=== PATIENT | male | born 1985 | race Caucasian/White ===

== ENCOUNTER 2018-03-10 10:06 | Inpatient (IN) | payer OTHER, SELFPAY ==
[2018-03-10] MEDS ORDERED: methylPREDNISolone Sod Succ/PF 125 MG/2 ML VIAL ONE (10:18)
[2018-03-10 10:39] LABS: #Basophils 0.2 thou/uL (0.0-0.2); #Eosinphils 0.2 thou/uL (0.0-0.7); #Lymphocytes 4.7 thou/uL (1.20-3.40); #Monocytes 1.8 thou/uL (0.11-0.59); %Basophils 1.2 % (0.0-1.0); %Eosinophils 1.7 % (0.0-10.0); %Lymphocytes 33.9 % (21.0-51.0); %Monocytes 13.1 % (0.0-10.0); %Neutrophils 50.2 % (42.0-75.0); Hemoglobin 18.3 g/dL (14.0-18.0); Mean Corpuscular HGB CONC 33.6 g/dL (32.0-36.0); Mean Corpuscular Hemoglobin 31.7 pg (27.0-31.0); Mean Corpuscular Volume 94.1 fL (78.0-98.0); Mean Platelet Volume 7.3 fL (7.4-10.4); Platelet Count 404 thou/uL (130-400); RBC Distribution Width 12.7 % (11.5-14.5); Red Blood Cell (RBC) Count 5.79 mill/uL (4.70-6.10); White Blood Cell (WBC) Count 13.9 thou/uL (4.8-10.8)
[2018-03-10] MEDS ORDERED: Albuterol Sulfate 2.5 mg/0.5 ml Neb ONE (10:41)
[2018-03-10 10:58] LABS: ALT (SGPT) 12 U/L (8-55); AST (SGOT) 27 U/L (5-34); Albumin 5.1 g/dL (3.5-5.0); Alkaline Phosphatase 112 U/L (40-150); Anion Gap 20 mmol/L (10-20); BUN (Urea Nitrogen) 16 mg/dL (8.9-20.6); Calc. Creatinine Clearance 0 mL/min (70-130); Calcium 10.6 mg/dL (7.8-10.44); Carbon Dioxide 22 mmol/L (22-29); Chloride 100 mmol/L (98-107); Estimated GFR-MDRD 65; Globulin 3.9 g/dL (2.4-3.5); Glucose 104 mg/dL (70-105); Potassium 3.3 mmol/L (3.5-5.1); Sodium 139 mmol/L (136-145)
[2018-03-10 11:00] LABS: CO2 Tension 13.3 mmHg (35.0-45.0); O2 Tension (PaO2) 118.4 mmHg (80.0-100.0); pH, Arterial 7.71 (7.35-7.45)
[2018-03-10] MEDS ORDERED: Magnesium 2 GM/NS 0.9% 100 ML 2 GM in Premix Bag 1 BAG IVPB SCH (11:00)
[2018-03-10 11:01] LABS: Actual Bicarbonate (HCO3a) 16.6 mEq/L (22-28); Analyzer IN Cardio ER; Base Excess (BEa) 1.3 mEq/L (-2.0 to +3.0); Carboxyhemoglobin (COHb) 0.9 gm% (0.0-3.0); Hemoglobin (Hb) 16.9 g/dL (14.0-18.0); Potassium - ABG Lab 3.3 mmol/L (3.70-5.30); Puncture Site L.B.
[2018-03-10 11:02] LABS: ALV-art Gradient 14.705 (0-20)
--- NOTE | 2018-03-10 11:02 | RAD ---
SINGLE VIEW CHEST: HISTORY: Dyspnea. History of asthma. COMPARISON: 06/11/2013 FINDINGS: Single view of the chest show normal sized cardiomediastinal silhouette. There is no evidence of cons olidation, mass, or pleural effusion. The bones are unremarkable. IMPRESSION: No evidence of acute cardiopulmonary disease. POS: [facility]
[2018-03-10] MEDS ORDERED: Azithromycin 500 MG VIAL ONE (11:47)
[2018-03-10] MEDS ORDERED: cefTRIAXone\\ROCEPHIN 1 GM VIAL ONE (11:47)
--- NOTE | 2018-03-10 13:41 | PDOC.FPRHP ---
- History of Present Illness Chief Complaint: Shortness of breath History of Present Illness: 33 year old male with history of asthma that presents with shortness of breath for the last two days. He states that he woke up short of breath yesterday morning. Since then, he has developed a non-productive cough. He has taken his albuterol inhaler q6h over the last two days which has helped minimally. He has not been on any maintenance inhalers in several years. As a kid he was hospitalized nearly every year, once a year for asthma exacerbation. He has never been intubated. Last hospital visit was appx 3 years ago. He had a URI which provoked an asthma exacerbation. Factors that exacerbate his asthma include environmental allergens like grass and pollen, as well as exercise. He also notes anxiety to be a factor here more recently. He was recently diagnosed with anxiety and has not been started on any medications. He cannot pinpoint any particular event over the last two days that would have made him anxious. Patient noted audible wheezing and some chest pain associated with his shortness of breath. Both improved after duoneb treatments. - Allergies/Adverse Reactions Allergies Allergy/AdvReac Type Severity Reaction Status Date / Time No Known Drug Allergies Allergy Verified 06/11/13 20:17 - Home Medications Medication Instructions Recorded Confirmed Type ALButerol Sulfate [Ventolin] 3 ml NEB Q4HR PRN 06/11/13 03/10/18 History - History PMHx: Asthma PSHx: None FHx: Family history of anxiety on maternal side Social: Denies tobacco, alcohol or drug use - Review of Systems General: denies: fever/chills, weight/appetite/sleep changes, fatigue Eyes: denies: eye pain, vision changes ENT: denies: nasal congestion, rhinorrhea Respiratory: reports: cough, shortness of breath. denies: congestion Cardiovascular: reports: chest pain. denies: palpitation, edema Gastrointestinal: denies: nausea, vomiting, diarrhea, constipation, abdominal pain, GI bleeding Genitourinary: denies: incontinence, polyuria Skin: reports: lesions. denies: rashes, jaundice Musculoskeletal: denies: pain, tenderness, stiffness Neurological: reports: numbness (bilateral hands). denies: syncope, seizure Psychological: denies: anxiety, depression - Vital signs BP: 107/65 HR: 111 RR: 111 Tmax: 98.0 F Pox: 100% on RA Wt: 56.9 kg - Physical Exam Constitutional: NAD, awake, alert and oriented, well developed HEENT: PERRLA, EOMI, conjunctiva clear, MMM -HEENT: very poor dentition Neck: no LAD, no JVD Heart: RRR, normal S1/S2, no murmurs/rubs/gallops, pulses present, no edema -Lungs: Decreased breath sounds, poor air movement, no wheezing Abdomen: soft, non-tender, bowel sounds present, no masses/distention Musculoskeletal: normal tone Neurological: no focal deficit Skin: good turgor, capillary refill <2 seconds -Skin: Multiple lesions on bilateral lower extremities that appear to be healed over; 2 /2 ant bites per patient Heme/Lymphatic: no unusual bruising or bleeding Psychiatric: good judgment and insight, intact recent and remote memory -Psychiatric: Flat affect FMR H&P: Results - Labs Result Diagrams: 03/11/18 04:46 03/11/18 04:46 Lab results: WBC 13.9 thou/uL (4.8-10.8) H 03/10/18 10:25 Hgb 18.3 g/dL (14.0-18.0) H 03/10/18 10:25 Hct 54.5 % (42.0-52.0) H 03/10/18 10:25 MCV 94.1 fL (78.0-98.0) 03/10/18 10:25 Plt Count 404 thou/uL (130-400) H 03/10/18 10:25 Neutrophils % 50.2 % (42.0-75.0) 03/10/18 10:25 ABG pH 7.71 (7.35-7.45) H* 03/10/18 10:50 ABG pCO2 13.3 mmHg (35.0-45.0) L* 03/10/18 10:50 ABG pO2 118.4 mmHg (80.0-100.0) H 03/10/18 10:50 Sodium 139 mmol/L (136-145) 03/10/18 10:25 Potassium 3.3 mmol/L (3.5-5.1) L 03/10/18 10:25 Chloride 100 mmol/L (98-107) 03/10/18 10:25 Carbon Dioxide 22 mmol/L (22-29) 03/10/18 10:25 BUN 16 mg/dL (8.9-20.6) 03/10/18 10:25 Creatinine 1.29 mg/dL (0.6-1.3) 03/10/18 10:25 Glucose 104 mg/dL (70-105) 03/10/18 10:25 Lactic Acid 5.5 mmol/L (0.5-2.2) H* 03/10/18 10:25 Calcium 10.6 mg/dL (7.8-10.44) H 03/10/18 10:25 Total Bilirubin 1.0 mg/dL (0.2-1.2) 03/10/18 10:25 AST 27 U/L (5-34) 03/10/18 10:25 ALT 12 U/L (8-55) 03/10/18 10:25 Alkaline Phosphatase 112 U/L (40-150) 03/10/18 10:25 Serum Total Protein 9.0 g/dL (6.0-8.3) H 03/10/18 10:25 Albumin 5.1 g/dL (3.5-5.0) H 03/10/18 10:25 FMR H&P: A/P - Problem List (1) Asthma exacerbation Current Visit: Yes Status: Acute Code(s): J45.901 - UNSPECIFIED ASTHMA WITH (ACUTE) EXACERBATION (2) Lactic acidosis Current Visit: Yes Status: Acute Code(s): E87.2 - ACIDOSIS (3) Leukocytosis Current Visit: Yes Status: Acute Code(s): D72.829 - ELEVATED WHITE BLOOD CELL COUNT, UNSPECIFIED - Plan 1. Asthma exacerbation - Hx of asthma on albuterol - Improved respiratory status with duonebs, Mg - Continue q4h duonebs with q2h albuterol PRN - Prednisone qd - s/p 2L NS; continue at 100 mL/hr - O2 for O2 sats <90% - s/p azithromycin and ceftriaxone x1 dose; continue azithromycin for possible infection and anti-inflammatory properties - Possibly exacerbated by infection; viral respiratory panel, influenza swab, and blood cx pending - Decreased lung sounds throughout, but no wheezing, rales or rhonchi on exam - pH 7.71, pCO2 13.3, pO2 118; hyperventilation. Values at - May have been provoked by environmental allergies, anxiety, or infection - Hypotensive on admission, but responded well to fluids Leukocytosis - Reactive vs. infectious - Blood cx, influenza swab, and respiratory panel pending - AM CBC Lactic acidosis - 5.5 on presentation, down to 1.3 after fluids Hypokalemia - Replace; may go down due to albuterol treatments DVT PPX: SCDs Code status: Full Dispo: Stable. Anticipate LOS >48 hours. Continue to monitor respiratory status. FMR H&P: Upper Level - Plan Date/Time: 03/10/18 [id number] I, [], have evaluated this patient and agree with findings/plan as outlined by pharmacist intern resident. Pertinent changes/additions are listed here. Attending Addendum - Attending Addendum Date/Time: 03/11/18 [id number] I personally evaluated the patient and discussed the management with Dr. Tavarez on 03/10/2018 I agree with the History, Examination, Assessment and Plan documented above with any addition or exceptions noted below- 33 year old gentleman with h/o asthma and anxiety presented c/o SOB x 2 days with associated non-productive cough. Uses albuterol inhaler prn and minimal relief with it over the last 2 days. No h/o intubations. Last hospitalization 3 years ago. PMH/PSH/Meds/All reviewed and agree with resident's documentation. Afebrile VSS Exam repeated by me and agree with resident's findings. A/P: 1) Asthma exacerbation- improved after nebs, steroids, fluids. Continue current meds.
[2018-03-10 14:20] VITALS: BMI 19.1
[2018-03-10] MEDS ORDERED: Ondansetron ODT 4 MG TAB PO PRN ×2 (14:35→14:37)
[2018-03-10] MEDS ORDERED: Ondansetron HCl/PF 4 MG/2 ML Vial IVP PRN (14:35)
[2018-03-10] MEDS ORDERED: Acetaminophen 325 MG TAB PO PRN (14:36)
[2018-03-10] MEDS ORDERED: Albuterol Sulfate 2.5 mg/3 ml Neb NEB PRN (14:37)
[2018-03-10] MEDS ORDERED: Sodium Chloride 0.9% 1,000 ML IV SCH (14:45)
[2018-03-10 14:50] LABS: Lactic Acid 1.3 mmol/L (0.5-2.2)
[2018-03-10] MEDS: Sodium Chloride 0.9% 1,000 ML IV SCH (15:47)
[2018-03-10] MEDS ORDERED: Potassium Chloride 20 MEQ TAB PO SCH (16:00)
[2018-03-10] MEDS ORDERED: methylPREDNISolone Sod Succ/PF 125 MG/2 ML VIAL IVP SCH (22:00)
[2018-03-11] MEDS: Sodium Chloride 0.9% 1,000 ML IV SCH ×2 (01:19→11:41)
[2018-03-11 05:21] LABS: Anion Gap 11 mmol/L (10-20); BUN (Urea Nitrogen) 13 mg/dL (8.9-20.6); Calc. Creatinine Clearance 116 mL/min (70-130); Calcium 9.1 mg/dL (7.8-10.44); Carbon Dioxide 24 mmol/L (22-29); Chloride 108 mmol/L (98-107); Estimated GFR-MDRD Greater than 90; Glucose 141 mg/dL (70-105); Potassium 4.1 mmol/L (3.5-5.1); Sodium 139 mmol/L (136-145)
[2018-03-11 05:43] LABS: Band 13 % (5-11); Hemoglobin 14.3 g/dL (14.0-18.0); Lymphocytes 11 % (21-51); MDiff Complete? YES; Mean Corpuscular HGB CONC 34.1 g/dL (32.0-36.0); Mean Corpuscular Hemoglobin 32.2 pg (27.0-31.0); Mean Corpuscular Volume 94.3 fL (78.0-98.0); Mean Platelet Volume 7.5 fL (7.4-10.4); Monocytes 5 % (0-10); Neutrophil 71 % (42-75); PLT Morphology Comment Appears Adequate; Platelet Count 307 thou/uL (130-400); RBC Distribution Width 12.4 % (11.5-14.5); Red Blood Cell (RBC) Count 4.44 mill/uL (4.70-6.10); White Blood Cell (WBC) Count 15.9 thou/uL (4.8-10.8)
[2018-03-11] MEDS ORDERED: predniSONE 20 MG TAB PO SCH (08:00)
[2018-03-11] MEDS ORDERED: Azithromycin 250 MG TAB PO SCH (09:00)
--- NOTE | 2018-03-11 11:50 | PDOC.FM ---
- Subjective Subjective: Patient doing well this AM. No significant overnight events. Patient states he is breathing a lot better. He states he does not feel short of breath. He denies chest pain, wheezing. Endorses dry cough. No fever. He has had chills the last few days. - Objective MAR Reviewed: Yes Vital Signs & Weight: Vital Signs (12 hours) Temp Pulse Resp BP BP Pulse Ox 03/11/18 11:00 104 H 18 96 03/11/18 08:00 97.7 F 113 H 15 104/58 L 99 03/11/18 07:33 100 18 98 03/11/18 04:00 98.3 F 107 H 18 100/55 L 96 03/11/18 03:02 100 03/11/18 02:15 66 16 Weight Weight 57.153 kg Result Diagrams: 03/11/18 04:46 03/11/18 04:46 EKG Reviewed by me: Yes Radiology Reviewed by me: Yes <Patricia Tavarez - Last Filed: 03/11/18 11:51> - Objective Vital Signs & Weight: Vital Signs (12 hours) Temp Pulse Resp BP BP Pulse Ox 03/11/18 15:29 101 H 16 96 03/11/18 15:17 98.0 F 103 H 17 100/57 L 95 03/11/18 12:00 98.2 F 98 16 102/60 97 03/11/18 11:00 104 H 18 96 03/11/18 08:00 97.7 F 113 H 15 104/58 L 99 03/11/18 07:33 100 18 98 Weight Weight 57.153 kg Result Diagrams: 03/11/18 04:46 03/11/18 04:46 <Gavino Madrid - Last Filed: 03/11/18 16:15> Phys Exam - Physical Examination Constitutional: NAD HEENT: moist MMs Neck: supple Respiratory: no wheezing Cardiovascular: RRR, no significant murmur Gastrointestinal: soft, no distention, positive bowel sounds Musculoskeletal: no edema, pulses present Neurological: non-focal Psychiatric: A&O x 3 Deviation from normal: flat affect Skin: cap refill <2 seconds <Patricia Tavarez - Last Filed: 03/11/18 11:51> Dx/Plan (1) Asthma exacerbation Code(s): J45.901 - UNSPECIFIED ASTHMA WITH (ACUTE) EXACERBATION Status: Acute (2) Lactic acidosis Code(s): E87.2 - ACIDOSIS Status: Acute (3) Leukocytosis Code(s): D72.829 - ELEVATED WHITE BLOOD CELL COUNT, UNSPECIFIED Status: Acute - Plan Plan: 1. Asthma exacerbation - Hx of asthma on albuterol - Improved respiratory status with duonebs - Prednisone qd x5 days - Azithromycin x5 days (Day #2) - Possibly exacerbated by bronchitis; viral panel and influenza swab negative - Start on maintenance inhalers Leukocytosis - Reactive vs. infectious - Respiratory panel negative, influenza neg - Blood cultures pending Lactic acidosis - 5.5 on presentation, down to 1.3 after fluids Hypokalemia - Replaced DVT PPX: SCDs Code status: Full Dispo: Stable. Plan for d/c home today. <Patricia Tavarez - Last Filed: 03/11/18 11:51> Attending Addendum - Attending Addendum Date/Time: 03/11/18 0646 I personally evaluated the patient and discussed the management with Dr. Tavarez. I agree with and repeated the History, Examination, Assessment and Plan documented above with any addition or exceptions noted below. Scant exp wheezing, no inc wob, good air movement. Plan for d/c and needs to f/ u with PCP. <Gavino Madrid - Last Filed: 03/11/18 16:15>
[2018-03-11 15:18] VITALS: BP 100/57; TEMP 98
== END 2018-03-11 19:39 | disposition home or self-care (01) | DRG 202 ==
LOC: ERS 10:06 → 2NO 12:42
PROVIDERS: ADMIT Family Medicine; ATTEND Family Medicine
DX: J45.901 Unspecified asthma with (acute) exacerbation (principal); E87.2 Acidosis; D72.829 Elevated white blood cell count, unspecified; E87.6 Hypokalemia
CPT/HCPCS: 36415; 71045; 80048; 80053; 82805; 83605; 85025; 87040; 87149; 87633; 87804; 93005; 94640; 94644; 94760; 96361; 96365; 96368; 96375; A4216; J0456; J0696; J2930; J3475; J7506; J7611; J7620

== ENCOUNTER 2018-12-31 22:36 | Emergency (ER) | payer SELFPAY ==
--- NOTE | 2018-12-31 23:49 | RAD ---
Exam: Left fifth finger 3 views: HISTORY: Injury, laceration, concern for foreign body COMPARISON: 01/18/2017 FINDINGS: No evidence for acute fracture or dislocation. Stable area of cortical thickening involving the radia l side of the proximal phalanx. No evidence for foreign body. IMPRESSION: Unremarkable left fifth finger. No evidence for foreign body or other acute process.
[2018-12-31] MEDS ORDERED: Lidocaine 1% (PF) 30 ML VIAL ONE (23:55)
== END 2019-01-01 00:25 | disposition home or self-care (01) ==
LOC: ERS 22:36
DX: S61.217A Laceration without foreign body of left little finger without damage to nail, initial encounter (principal); W25.XXXA Contact with sharp glass, initial encounter
CPT/HCPCS: 12001; J2001

== ENCOUNTER 2019-01-20 12:04 | Emergency (ER) | payer SELFPAY ==
[2019-01-20 12:58] LABS: #Basophils 0.1 thou/uL (0.0-0.2); #Eosinphils 0.2 thou/uL (0.0-0.7); #Lymphocytes 2.3 thou/uL (1.20-3.40); #Monocytes 0.9 thou/uL (0.11-0.59); #Neutrophils 6.7 thou/uL (1.40-6.50); %Lymphocytes 22.7 % (21.0-51.0); %Monocytes 8.8 % (0.0-10.0); %Neutrophils 65.5 % (42.0-75.0); Hemoglobin 15.1 g/dL (14.0-18.0); Mean Corpuscular HGB CONC 32.7 g/dL (32.0-36.0); Mean Corpuscular Volume 94.7 fL (78.0-98.0); Mean Platelet Volume 7.2 fL (7.4-10.4); Platelet Count 318 thou/uL (130-400); Red Blood Cell (RBC) Count 4.88 mill/uL (4.70-6.10); White Blood Cell (WBC) Count 10.2 thou/uL (4.8-10.8)
[2019-01-20 13:20] LABS: Acetaminophen Less than 6.0 mcg/mL (10.0-30.0); Alcohol Less than 10 mg/dL (Less than 10); CK (CPK) 125 U/L (30-200); Salicylate Less than 8.0 mg/dL (15.0-30.0)
[2019-01-20 13:21] LABS: ALT (SGPT) 8 U/L (8-55); AST (SGOT) 14 U/L (5-34); Albumin 4.7 g/dL (3.5-5.0); Alkaline Phosphatase 74 U/L (40-150); Anion Gap 15 mmol/L (10-20); BUN (Urea Nitrogen) 16 mg/dL (8.9-20.6); Bilirubin, Total 0.9 mg/dL (0.2-1.2); Calc. Creatinine Clearance 0 mL/min (70-130); Carbon Dioxide 26 mmol/L (22-29); Chloride 102 mmol/L (98-107); Estimated GFR-MDRD 87; Globulin 2.6 g/dL (2.4-3.5); Glucose 97 mg/dL (70-105); Potassium 3.9 mmol/L (3.5-5.1); Protein, Total 7.3 g/dL (6.0-8.3); Sodium 139 mmol/L (136-145)
[2019-01-20 14:48] LABS: Bilirubin Negative (Negative); Blood, Urine Negative (Negative); Clarity Clear (Clear); Glucose, Urine (Dipstick) Normal (Negative); Leukocyte Negative Leu/uL (Negative); Nitrite Negative (Negative); Protein, Urine (Dipstick) Negative (Neg-Trace); Urobilinogen Normal mg/dL (Less than 2)
[2019-01-20 15:05] LABS: Amphetamine Detected (NotDetected); Barbiturates Screen Not Detected (NotDetected); Benzodiazepine Screen Not Detected (NotDetected); Cocaine Metabolite Screen Not Detected (NotDetected); Medtox Control Line Valid? VALID (VALID); Medtox Reader # READER 1; Methadone Not Detected (NotDetected); Methamphetamine Detected (NotDetected); Opiate Screen Not Detected (NotDetected); Oxycodone Screen Not Detected (NotDetected); Phencyclidine (PCP) Not Detected (NotDetected); THC/Cannabinoid Screen Not Detected (NotDetected); Tricyclic Screen Not Detected (NotDetected)
[2019-01-20] MEDS ORDERED: traZODone HCl 150 MG TAB PO SCH (21:00)
[2019-01-20] MEDS ORDERED: Perphenazine 2 MG TAB PO SCH (21:00)
[2019-01-20] MEDS ORDERED: Bacitracin 1 PK ONE (22:55)
[2019-01-21] MEDS ORDERED: FLUoxetine HCl 20 MG CAP PO SCH (09:00)
[2019-01-21] MEDS ORDERED: Nicotine 14 MG PATCH TOP SCH (09:00)
[2019-01-22] MEDS ORDERED: traZODone HCl 50 MG TAB ONE (00:14)
== END 2019-01-24 22:36 ==
LOC: ERS 12:04
DX: F33.40 Major depressive disorder, recurrent, in remission, unspecified (principal); F15.10 Other stimulant abuse, uncomplicated; J45.909 Unspecified asthma, uncomplicated; F41.9 Anxiety disorder, unspecified; Z79.899 Other long term (current) drug therapy
CPT/HCPCS: 36415; 80053; 80306; 80307; 81003; 82550; 84443; 85025; 99285; Q0175

== ENCOUNTER 2020-01-13 19:05 | Emergency (ER) | payer SELFPAY | END 2020-01-13 19:30 | disposition home or self-care (01) | LOC: ERS 19:05 | DX: R45.851 Suicidal ideations (principal); F41.9 Anxiety disorder, unspecified; F32.9 Major depressive disorder, single episode, unspecified; Z79.899 Other long term (current) drug therapy | CPT/HCPCS: 94760; 99284 ==

== ENCOUNTER 2020-04-08 19:25 | Emergency (ER) | payer SELFPAY ==
[2020-04-08 19:55] LABS: #Basophils 0.1 thou/uL (0.0-0.2); #Eosinphils 0.1 thou/uL (0.0-0.7); #Lymphocytes 2.9 thou/uL (1.20-3.40); #Neutrophils 7.2 thou/uL (1.40-6.50); %Basophils 1.1 % (0.0-1.0); %Eosinophils 1.3 % (0.0-10.0); %Lymphocytes 25.2 % (21.0-51.0); %Monocytes 9.1 % (0.0-10.0); %Neutrophils 63.4 % (42.0-75.0); Hemoglobin 15.4 g/dL (14.0-18.0); Mean Corpuscular HGB CONC 33.4 g/dL (32.0-36.0); Mean Corpuscular Hemoglobin 32.3 pg (27.0-31.0); Mean Corpuscular Volume 96.6 fL (78.0-98.0); Mean Platelet Volume 7.2 fL (7.4-10.4); Platelet Count 328 thou/uL (130-400); RBC Distribution Width 11.8 % (11.5-14.5); Red Blood Cell (RBC) Count 4.77 mill/uL (4.70-6.10); White Blood Cell (WBC) Count 11.3 thou/uL (4.8-10.8)
[2020-04-08 20:18] LABS: Acetaminophen Less than 6.0 mcg/mL (10.0-30.0); Alcohol Less than 10 mg/dL (Less than 10); Salicylate Less than 8.0 mg/dL (15.0-30.0)
[2020-04-08 20:19] LABS: ALT (SGPT) 12 U/L (8-55); AST (SGOT) 23 U/L (5-34); Albumin 4.3 g/dL (3.5-5.0); Alcohol Less than 10 mg/dL (Less than 10); Alkaline Phosphatase 71 U/L (40-110); Anion Gap 15 mmol/L (10-20); BUN (Urea Nitrogen) 17 mg/dL (8.9-20.6); Bilirubin, Total 0.5 mg/dL (0.2-1.2); Calc. Creatinine Clearance 0 mL/min (70-130); Calcium 9.2 mg/dL (7.8-10.44); Carbon Dioxide 22 mmol/L (22-29); Chloride 104 mmol/L (98-107); Estimated GFR-MDRD 79; Globulin 2.7 g/dL (2.4-3.5); Glucose 98 mg/dL (70-105); Potassium 4.5 mmol/L (3.5-5.1); Sodium 136 mmol/L (136-145)
[2020-04-08 22:12] LABS: Bilirubin Negative (Negative); Blood, Urine Negative (Negative); Clarity Clear (Clear); Glucose, Urine (Dipstick) Normal (Negative); Ketone, Urine Negative (Negative); Leukocyte Negative Leu/uL (Negative); Nitrite Negative (Negative); Protein, Urine (Dipstick) 20 mg/dL (Neg-Trace); Specific Gravity, Urine 1.022 (1.002-1.036); Urobilinogen Normal mg/dL (Less than 2); pH, Urine 5.5 (5.0-9.0)
[2020-04-08 22:22] LABS: Amphetamine Detected (NotDetected); Barbiturates Screen Not Detected (NotDetected); Benzodiazepine Screen Not Detected (NotDetected); Cocaine Metabolite Screen Not Detected (NotDetected); Medtox Control Line Valid? VALID (VALID); Medtox Reader # READER 1; Methadone Not Detected (NotDetected); Methamphetamine Not Detected (NotDetected); Opiate Screen Not Detected (NotDetected); Oxycodone Screen Not Detected (NotDetected); Phencyclidine (PCP) Not Detected (NotDetected); THC/Cannabinoid Screen Not Detected (NotDetected); Tricyclic Screen Not Detected (NotDetected)
== END 2020-04-09 00:38 | disposition home or self-care (01) ==
LOC: ERS 19:25
DX: S51.812A Laceration without foreign body of left forearm, initial encounter (principal); S51.811A Laceration without foreign body of right forearm, initial encounter; F43.0 Acute stress reaction; F15.10 Other stimulant abuse, uncomplicated; J45.909 Unspecified asthma, uncomplicated; F41.9 Anxiety disorder, unspecified; F32.9 Major depressive disorder, single episode, unspecified; Z79.899 Other long term (current) drug therapy; X78.9XXA Intentional self-harm by unspecified sharp object, initial encounter
CPT/HCPCS: 36415; 80053; 80306; 80307; 81003; 85025

== ENCOUNTER 2021-04-24 16:39 | Emergency (ER) | payer SELFPAY ==
[2021-04-24 17:23] LABS: Bacteria/HPF None Seen HPF (None Seen); Bilirubin Negative (Negative); Blood, Urine 1+ (Negative); Calcium Oxalate Crystals Rare HPF (None Seen); Clarity Clear (Clear); Glucose, Urine (Dipstick) Normal (Negative); Ketone, Urine Negative (Negative); Leukocyte Negative Leu/uL (Negative); Nitrite Negative (Negative); Protein, Urine (Dipstick) 20 mg/dL (Neg-Trace); Specific Gravity, Urine 1.021 (1.002-1.036); Squamous Epithelial 0-3 HPF (0-3); Urobilinogen Normal mg/dL (Less than 2); WBC/HPF 0-3 HPF (0-3)
[2021-04-24 17:24] LABS: Sperm/HPF Rare HPF (None Seen)
[2021-04-24 17:31] LABS: Amphetamine Detected (NotDetected); Barbiturates Screen Not Detected (NotDetected); Benzodiazepine Screen Not Detected (NotDetected); Cocaine Metabolite Screen Not Detected (NotDetected); Methadone Not Detected (NotDetected); Methamphetamine Detected (NotDetected); Opiate Screen Not Detected (NotDetected); Oxycodone Screen Not Detected (NotDetected); Phencyclidine (PCP) Not Detected (NotDetected); THC/Cannabinoid Screen Not Detected (NotDetected); Tricyclic Screen Not Detected (NotDetected)
[2021-04-24 17:31] LABS: #Basophils 0.1 thou/uL (0.0-0.2); #Eosinphils 0.5 thou/uL (0.0-0.7); #Lymphocytes 3.6 thou/uL (1.20-3.40); #Monocytes 1.6 thou/uL (0.11-0.59); %Basophils 0.9 % (0.0-1.0); %Eosinophils 3.2 % (0.0-10.0); %Lymphocytes 24.4 % (21.0-51.0); %Monocytes 10.9 % (0.0-10.0); %Neutrophils 60.6 % (42.0-75.0); Hemoglobin 14.9 g/dL (14.0-18.0); Mean Corpuscular Volume 97.1 fL (78.0-98.0); Mean Platelet Volume 7.7 fL (7.4-10.4); Platelet Count 361 thou/uL (130-400); Red Blood Cell (RBC) Count 4.64 mill/uL (4.70-6.10); White Blood Cell (WBC) Count 14.8 thou/uL (4.8-10.8)
[2021-04-24 18:02] LABS: ALT (SGPT) 21 U/L (8-55); AST (SGOT) 23 U/L (5-34); Alkaline Phosphatase 87 U/L (40-110); Anion Gap 13 mmol/L (10-20); BUN (Urea Nitrogen) 11 mg/dL (8.9-20.6); Bilirubin, Total 0.2 mg/dL (0.2-1.2); Calc. Creatinine Clearance 0 mL/min (70-130); Calcium 9.7 mg/dL (7.8-10.44); Carbon Dioxide 28 mmol/L (22-29); Chloride 106 mmol/L (98-107); Globulin 3.1 g/dL (2.4-3.5); Glucose 88 mg/dL (70-105); Potassium 3.6 mmol/L (3.5-5.1); Protein, Total 7.1 g/dL (6.0-8.3); Sodium 143 mmol/L (136-145)
[2021-04-24 18:04] LABS: Acetaminophen Less than 6.0 mcg/mL (10.0-30.0); Alcohol Less than 10 mg/dL (Less than 10); CK (CPK) 108 U/L (30-200); Salicylate Less than 8.0 mg/dL (15.0-30.0)
[2021-04-25] MEDS ORDERED: traZODone HCl 50 MG TAB ONE (05:08)
== END 2021-04-26 14:45 | disposition home or self-care (01) ==
LOC: ERS 16:39
DX: S50.812A Abrasion of left forearm, initial encounter (principal); S50.811A Abrasion of right forearm, initial encounter; F32.9 Major depressive disorder, single episode, unspecified; J45.909 Unspecified asthma, uncomplicated; F15.10 Other stimulant abuse, uncomplicated; Z59.00 Homelessness unspecified; X78.1XXA Intentional self-harm by knife, initial encounter
CPT/HCPCS: 36415; 80053; 80306; 80307; 81003; 81015; 82550; 84443; 85025; 93005